=== PATIENT | male | born 1970 | race Caucasian/White ===

== ENCOUNTER 2018-01-07 07:53 | Day surgery (SDC) | payer BC ==
[~2018-01-07 07:53] MED LIST: DEPO-TESTOS200 MG/M1 IM; GLIMEPIRIDE4 MG PO; MEDDOSEPAK PO; METFORMIN1000 MG PO; MULTIVITAMIN AD1 TA1 PO; OMEPRAZOLE PO; TRAZODONE100 MG PO; VOLTAREN1%GEL TOP; [UNRECOGNIZED DRUG - OTHER] PO
[2018-01-07 10:41] VITALS: BP 116/73
== END 2018-01-07 10:55 | disposition home or self-care (01) | DRG 392 ==
LOC: ORM 07:53 → ENDO 07:53 → ORM 08:45
PROVIDERS: ATTEND Internal Medicine Gastroenterology
PROC: 0D758ZZ Dilation of Esophagus, Via Natural or Artificial Opening Endoscopic (ICD-10-PCS; principal; 2018-01-07)
PROC: 0DB48ZX Excision of Esophagogastric Junction, Via Natural or Artificial Opening Endoscopic, Diagnostic (ICD-10-PCS; 2018-01-07)
PROC: 0DB78ZX Excision of Stomach, Pylorus, Via Natural or Artificial Opening Endoscopic, Diagnostic (ICD-10-PCS; 2018-01-07)
PROC: 0DB18ZX Excision of Upper Esophagus, Via Natural or Artificial Opening Endoscopic, Diagnostic (ICD-10-PCS; 2018-01-07)
PROC: 0DB28ZX Excision of Middle Esophagus, Via Natural or Artificial Opening Endoscopic, Diagnostic (ICD-10-PCS; 2018-01-07)
DX: K21.0 Gastro-esophageal reflux disease with esophagitis (principal); K22.2 Esophageal obstruction; K29.70 Gastritis, unspecified, without bleeding; J39.2 Other diseases of pharynx; K22.8 Other specified diseases of esophagus; E11.9 Type 2 diabetes mellitus without complications; Z80.0 Family history of malignant neoplasm of digestive organs